=== PATIENT | female | born 1945 | race Caucasian/White ===

== ENCOUNTER → 2019-04-27 | Outpatient (CLI) | payer OTHER ==
[~2019-04-27] MED LIST: ACETAMINOPHEN-H1 TA2 PO; ALLERGY RELIEF10 M1 PO; ASPIRIN81 M1 PO; FLUTICASONE; FUROSEMIDE20 MG PO; LISINOPRIL20 MG PO; Lopressor25 MG PO; MINITRAN0.2 MG/HR; OMEPRAZOLE20 MG PO; POTASSIUM CHLORIDE; PRAVASTATIN SOD40 MG; Ventolin 02.5 MG/3 M INH
[2019-04-27 12:20] LABS: BASO # 0.1 10*3/uL (0.0-0.1); BASO % 0.7 % (0.0-1.0); EOS # 0.1 10*3/uL (0.0-0.4); EOS % 1.3 % (1.0-4.0); HEMATOCRIT 43.1 % (37.0-47.0); LYMPH # 2.1 10*3/uL (1.3-4.4); LYMPH % 23.2 % (27.0-41.0); MEAN CELL VOLUME 91.1 fl (81.0-99.0); MEAN CORPUSCULAR HGB 29.6 pg (27.0-31.0); MEAN CORPUSCULAR HGB CONC 32.5 g/dl (33.0-37.0); MEAN PLATELET VOLUME 8.9 fl (9.6-12.3); MONO # 0.5 10*3/uL (0.1-1.0); MONO % 5.5 % (3.0-9.0); NEUT # 6.2 10*3/uL (2.3-7.9); NEUT % 68.9 % (47.0-73.0); PLATELET COUNT AUTOMATED 342 10*3/uL (130-400); RED BLOOD COUNT 4.73 10*6/uL (4.10-5.10); RED CELL DISTRI WIDTH 12.8 % (0-14.5); WHITE BLOOD COUNT 9.1 10*3/uL (4.8-10.8)
[2019-04-27 12:40] LABS: BUN 11 mg/dl (7-24); CHLORIDE 104 mmol/L (98-107); CREATININE 0.99 mg/dL (0.55-1.02); POTASSIUM 4.3 mmol/L (3.5-5.1); SODIUM 138 mmol/L (136-145)
== END | disposition home or self-care (01) ==
LOC: LAB 11:08
PROVIDERS: Student in an Organized Health Care Education/Training Program
DX: I10 Essential (primary) hypertension (principal)

== ENCOUNTER → 2020-07-05 | Outpatient (CLI) | payer OTHER | END | disposition home or self-care (01) | LOC: CT 09:00 | PROVIDERS: ATTEND Family Medicine | DX: K57.30 Diverticulosis of large intestine without perforation or abscess without bleeding (principal); K46.9 Unspecified abdominal hernia without obstruction or gangrene; K86.1 Other chronic pancreatitis; K59.00 Constipation, unspecified; I70.0 Atherosclerosis of aorta ==

== ENCOUNTER → 2020-07-18 | Outpatient (CLI) | payer OTHER ==
[2020-07-18 16:53] LABS: BASO # 0.1 10*3/uL (0.0-0.1); EOS # 0.1 10*3/uL (0.0-0.4); EOS % 1.8 % (1.0-4.0); HEMATOCRIT 41.5 % (37.0-47.0); LYMPH % 32.2 % (27.0-41.0); MEAN CELL VOLUME 89.2 fl (81.0-99.0); MEAN CORPUSCULAR HGB 28.6 pg (27.0-31.0); MEAN PLATELET VOLUME 8.5 fl (9.6-12.3); MONO # 0.5 10*3/uL (0.1-1.0); MONO % 7.4 % (3.0-9.0); NEUT # 3.6 10*3/uL (2.3-7.9); NEUT % 57.4 % (47.0-73.0); PLATELET COUNT AUTOMATED 415 10*3/uL (130-400); RED BLOOD COUNT 4.65 10*6/uL (4.10-5.10); RED CELL DISTRI WIDTH 13.2 % (0-14.5); WHITE BLOOD COUNT 6.3 10*3/uL (4.8-10.8)
[2020-07-18 17:31] LABS: IRON 75 ug/dL (50-170); TOTAL IRON BINDING CAPACITY 315 ug/dl (250-450)
[2020-07-18 17:33] LABS: ALBUMIN 3.1 gm/dl (3.1-4.5); ALKALINE PHOSPHATASE 242 U/L (45-117); BUN 9 mg/dl (7-24); CHLORIDE 108 mmol/L (98-107); CREATININE 0.92 mg/dL (0.55-1.02); POTASSIUM 3.9 mmol/L (3.5-5.1); SGOT/AST 19 IU/L (3-35); SGPT/ALT 54 U/L (12-78); SODIUM 139 mmol/L (136-145); TOTAL PROTEIN 6.9 gm/dL (6.4-8.2)
[2020-07-18 17:34] LABS: CEA 1.8 ng/mL
[2020-07-18 19:08] LABS: FERRITIN 114.6 ng/mL (10.0-291.0); VITAMIN D, 25-HYDROXY 20.7 ng/mL (30-100)
[2020-07-19 08:10] LABS: HEPATITIS B SURFACE AB Non Reactive (.); HEPATITIS B SURFACE AG Negative (Negative)
[2020-07-19 16:12] LABS: AFP TUMOR MARKER 3.6 ng/mL (0.0-8.3); CA 19-9 50 U/mL (0-35)
== END | disposition home or self-care (01) ==
LOC: LAB 16:20
PROVIDERS: Student in an Organized Health Care Education/Training Program; ATTEND Internal Medicine Gastroenterology
DX: C22.8 Malignant neoplasm of liver, primary, unspecified as to type (principal); C78.89 Secondary malignant neoplasm of other digestive organs; C22.0 Liver cell carcinoma; E55.9 Vitamin D deficiency, unspecified; K76.9 Liver disease, unspecified; Z11.59 Encounter for screening for other viral diseases; Z72.89 Other problems related to lifestyle

== ENCOUNTER → 2020-08-01 | Outpatient (CLI) | payer OTHER | END | disposition home or self-care (01) | LOC: CT 12:52 | PROVIDERS: ATTEND Internal Medicine Gastroenterology | DX: K76.89 Other specified diseases of liver (principal); K44.9 Diaphragmatic hernia without obstruction or gangrene; K86.89 Other specified diseases of pancreas; I70.0 Atherosclerosis of aorta; M47.819 Spondylosis without myelopathy or radiculopathy, site unspecified ==

== ENCOUNTER → 2021-09-21 | Outpatient (CLI) | payer OTHER ==
[2021-09-21 13:50] LABS: ALBUMIN 3.1 gm/dl (3.1-4.5)
[2021-09-21 13:56] LABS: TOTAL PROTEIN 6.9 gm/dL (6.4-8.2)
== END | disposition home or self-care (01) ==
LOC: LAB 12:55
PROVIDERS: ATTEND Internal Medicine Gastroenterology
DX: K85.10 Biliary acute pancreatitis without necrosis or infection (principal); K59.00 Constipation, unspecified; K76.89 Other specified diseases of liver

== ENCOUNTER 2023-01-16 22:12 | Emergency (ER) | payer OTHER ==
[~2023-01-16] VITALS: Ht 172.7 cm; Wt 90.7 kg
[2023-01-16] MEDS ORDERED: PANTOPRAZOLE SO40 MG PO (22:27)
[2023-01-16] MEDS ORDERED: LISINOPRIL20 MG PO (22:28)
[2023-01-16] MEDS ORDERED: AZELASTINE137 MCG/0. NAS (22:28)
[2023-01-16] MEDS ORDERED: Percocet 325 MG1 TAB PO (23:08)
== END 2023-01-16 23:30 | disposition home or self-care (01) ==
LOC: ED 22:12
DX: S82.891A Other fracture of right lower leg, initial encounter for closed fracture (principal); Z90.89 Acquired absence of other organs; Z90.710 Acquired absence of both cervix and uterus; Z98.890 Other specified postprocedural states; Z79.899 Other long term (current) drug therapy; W18.39XA Other fall on same level, initial encounter; Y93.89 Activity, other specified; Y92.89 Other specified places as the place of occurrence of the external cause; Y99.8 Other external cause status

== ENCOUNTER → 2023-01-20 | Outpatient (CLI) | payer OTHER ==
[~2023-01-20] MED LIST changes: +AZELASTINE137 MCG/0. NAS; +PANTOPRAZOLE SO40 MG PO; +Percocet 325 MG1 TAB PO
== END | disposition home or self-care (01) ==
LOC: ORTHO 00:35
PROVIDERS: ATTEND Orthopaedic Surgery
DX: S82.891D Other fracture of right lower leg, subsequent encounter for closed fracture with routine healing (principal); X58.XXXD Exposure to other specified factors, subsequent encounter

== ENCOUNTER → 2023-01-27 | Outpatient (CLI) | payer OTHER | END | disposition home or self-care (01) | LOC: ORTHO 01:32 | PROVIDERS: ATTEND Orthopaedic Surgery | DX: M25.862 Other specified joint disorders, left knee (principal); M25.861 Other specified joint disorders, right knee; M79.89 Other specified soft tissue disorders; M25.761 Osteophyte, right knee; M25.762 Osteophyte, left knee; M77.31 Calcaneal spur, right foot ==

== ENCOUNTER → 2023-02-10 | Outpatient (CLI) | payer OTHER | END | disposition home or self-care (01) | LOC: RAD 01-31 10:00 → ORTHO 01:19 → RAD 13:30 | PROVIDERS: ATTEND Orthopaedic Surgery | DX: S82.64XA Nondisplaced fracture of lateral malleolus of right fibula, initial encounter for closed fracture (principal); M81.0 Age-related osteoporosis without current pathological fracture; X58.XXXA Exposure to other specified factors, initial encounter; Y93.89 Activity, other specified; Y92.89 Other specified places as the place of occurrence of the external cause; Y99.8 Other external cause status ==

== ENCOUNTER → 2023-02-26 | Outpatient (CLI) | payer OTHER | END | disposition home or self-care (01) | LOC: ORTHO 01:11 | PROVIDERS: ATTEND Orthopaedic Surgery | DX: S82.431D Displaced oblique fracture of shaft of right fibula, subsequent encounter for closed fracture with routine healing (principal); S82.64XD Nondisplaced fracture of lateral malleolus of right fibula, subsequent encounter for closed fracture with routine healing; M79.89 Other specified soft tissue disorders; X58.XXXD Exposure to other specified factors, subsequent encounter ==

== ENCOUNTER → 2023-03-13 | Outpatient (CLI) | payer OTHER | END | disposition home or self-care (01) | LOC: US 11:34 | PROVIDERS: ATTEND Orthopaedic Surgery | DX: R60.0 Localized edema (principal) ==

== ENCOUNTER → 2024-03-23 | Outpatient (CLI) | payer MEDICARE | END | disposition home or self-care (01) | LOC: CARD 13:00 | PROVIDERS: ATTEND Internal Medicine | DX: I34.81 Nonrheumatic mitral (valve) annulus calcification (principal); R06.02 Shortness of breath; I51.89 Other ill-defined heart diseases ==

== ENCOUNTER → 2024-04-22 | Outpatient (CLI) | payer MEDICARE ==
[~2024-04-22] MED LIST changes: +Regadenoson 0.4 MG/5 ML SYR IV ONE
== END | disposition home or self-care (01) ==
LOC: CARD 00:36
PROVIDERS: ATTEND Internal Medicine
DX: I25.118 Atherosclerotic heart disease of native coronary artery with other forms of angina pectoris (principal); R06.02 Shortness of breath

== ENCOUNTER → 2024-04-26 | Outpatient (CLI) | payer MEDICARE ==
[~2024-04-26] MED LIST changes: -Regadenoson 0.4 MG/5 ML SYR IV ONE
== END | disposition home or self-care (01) ==
LOC: NM 10:00
PROVIDERS: ATTEND Family Medicine
DX: E34.9 Endocrine disorder, unspecified (principal)